=== PATIENT | female | born 1950 | race Caucasian/White ===

== ENCOUNTER 2018-07-05 06:34 | Day surgery (SDC) | payer OTHER ==
[~2018-07-05 06:34] MED LIST: ASPIR 8181 MG PO; ATORVASTATIN CA40 MG PO; LEVOTHYROXINE50 MCG PO; OMEGA 3 500 SO1 EACH PO
[2018-07-05] MEDS ORDERED: MACROBID 100 M100 MG PO (10:42)
[2018-07-05] MEDS ORDERED: ULTRACET PO (10:43)
== END 2018-07-05 13:15 | disposition home or self-care (01) ==
LOC: CIR.AMB 06:34
DX: N81.11 Cystocele, midline (principal)